=== PATIENT | male | born 1945 | race Caucasian/White ===

== ENCOUNTER → 2021-08-24 | Outpatient (CLI) | payer MEDICARE, SELFPAY | END | disposition home or self-care (01) | PROVIDERS: Visit Provider Physician Assistant | DX: U07.1 COVID-19 (principal) | CPT/HCPCS: 87635; U0005; U0003 ==

== ENCOUNTER 2021-08-25 14:37 | Outpatient (CLI) | payer MEDICARE, SELFPAY ==
[2021-08-25] MEDS: 0.9% Saline Lock 10 ML Syringe IV (14:40)
[2021-08-25 14:45] VITALS: BP 133/65; PULSE 86; RESP 16; TEMP 37.4; O2SAT 97; BMI 24.7
[2021-08-25 15:44] VITALS: BP 129/50; PULSE 63; RESP 16; TEMP 37.3; O2SAT 95
[2021-08-25 16:39] VITALS: BP 144/57; PULSE 71; RESP 16; TEMP 37.2; O2SAT 94
== END 2021-08-25 16:25 | disposition home or self-care (01) ==
LOC: MS3OUT 14:37 → MS3 14:38
PROVIDERS: Referring Provider Nurse Practitioner Adult Health; Visit Provider Nurse Practitioner Adult Health
DX: Z23 Encounter for immunization (principal); U07.1 COVID-19
CPT/HCPCS: J7050; M0243; A4216; Q0240

== ENCOUNTER → 2025-09-30 | Outpatient (CLI) | payer MEDICARE, OTHER, SELFPAY ==
--- NOTE | 2025-09-30 12:01 | RAD_ITS ---
PROCEDURE: LUMBAR SPINE 2 OR 3 VIEWS 09/30/2025 REASON FOR EXAM: Low back pain TECHNIQUE: Procedure Code: RADSPLL Modality: DX Procedure: LUMBAR SPINE 2 OR 3 VIEWS COMPARISON: None FINDINGS: Vertebrae: No demonstrated fracture or suspicious osseous lesion Discs: Disc space narrowing throughout the lumbar spine most pronounced between L2-3 and L3-4. Alignment: There is anatomic alignment of the lumbar spine in the lateral view but the AP view shows a levoscoliosis apex at L1-2. No pars defect or spondylolisthesis Other: Peripheral calcifications in the abdominal aorta without aneurysm. Calcifications overlying the left renal shadow, there is a hyperdense oval object in the right abdomen of uncertain significance or etiology RAD/Lumbar Spine 2 or 3 Views IMPRESSION: Multilevel degenerative changes with a levoscoliosis. No demonstrated fracture , pars defect or spondylolisthesis. Likely left nephrolithiasis, oval calcifications in the right abdomen of uncert ain etiology or significance Reading Location: [id number]
== END | disposition home or self-care (01) ==
LOC: RAD 12:01
PROVIDERS: PCP Internal Medicine; Referring Provider Anesthesiology Pain Medicine; Visit Provider Anesthesiology Pain Medicine
DX: M47.9 Spondylosis, unspecified (principal)
CPT/HCPCS: 72100